=== PATIENT | male | born 1975 | race Caucasian/White ===

== ENCOUNTER 2024-12-05 10:03 | Emergency (ER) | payer OTHER, SELFPAY ==
[2024-12-05 10:10] VITALS: BP 177/100
--- NOTE | 2024-12-05 11:29 | ED.GENMED ---
History of Present Illness
General
Chief Complaint: Skin Surface Trauma
Source: patient
Exam Limitations: none
Time Seen by Provider: 12/05/24 10:47
Nursing documentation reviewed up to this point in time: agreed with
History of Present Illness
History of Present Illness:
Patient is a 49-year-old male who presents to the ER for evaluation of laceration. Patient was using a chainsaw and actually hit the top part of his left hand. He is [id number]. He denies any other injuries. He denies any numbness
tingling. No other injuries. Unsure of his last tetanus.
Past History
Past History
ED Past Medical History: GERD (Previcid prn), HTN (Metoprolol), Psychiatric (Sertriline 100 mg) and Other (Previous phlebitis from an IV and peripheral line in his right arm.)
ED Past Surgical History: Cholecystectomy
Social History
Tobacco: Non-smoker
Alcohol: Occasional
Personal:
Living: with family
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
Family History
Family History: Negative Diabetes, Hypertension or CAD
Review of Systems
Review of Systems
Allergies reviewed?: Yes
All Other Systems: ROS reviewed and negative except as documented in HPI and ROS
Constitutional: Reports no symptoms
Skin: Reports other (laceration to left hand )
Neurological: Reports no symptoms
Psychiatric: Reports no symptoms
Phy Exam
General Physical Exam
General Presentation: no apparent distress
General age: appears stated age
General Skin: warm and dry
General Habitus: normal
General Mental: alert
General Hydration: appears well hydrated
Neurological Exam
Neurological Exam: alert and oriented x3
Musculoskeletal Exam
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
Skin Exam
Skin Exam: normal color and warm/dry
Psychiatric Exam
Psychiatric Exam: normal mood/affect
Course
Orders/Labs/Results
Orders:
Orders
12/05/24 11:29
Tetanus/Diphth/Acelpertussis [Adacel] 0.5 ml IM .ONCE ONE
12/05/24 11:31
Vital Signs- Treatment ONCE
Frequency: Once
Vital Signs
Initial and Last Documented VS:
Initial Vital Signs
Temp Pulse Resp Pulse Ox
98.4 F 67 16 98
12/05/24 10:06 12/05/24 10:06 12/05/24 10:06 12/05/24 10:06
Last Documented Vital Signs
Temp Pulse Resp BP Pulse Ox
98.4 F 67 16 177/100 98
12/05/24 10:06 12/05/24 10:06 12/05/24 10:06 12/05/24 10:10 12/05/24 10:06
Procedures
Laceration Closure
Left Dorsal Hand:
Status of Wound: clean
Size of Wound in cm: 4
Description of Wound Edges: sharp
Preparation: cleaned with saline
Anesthesia: 1% Lidocaine
Revision/Debridement: routine- no revision
Wound exploration: no tendon involvement
Type of Closure: single layer closure and interrupted sutures
Skin Closure Material: 5-0 nylon
Number of sutures: 7
MDM/Problems Addressed
Differential Diagnosis Includes:
Not limited laceration
MDM/Problems Addressed:
Some laceration to dorsal left hand repaired as documented. Tetanus updated. Normal neurovascular exam wound care reviewed.
*Critical Care Note
Total Time (30-74mins, 75-104mins- exclusive of procedures): Not Applicable
ED Attending Note
-
Portions of this chart may have been created with voice recognition software.� Occasional wrong word or��sound alike� substitutions may have occurred due to the inherent limitations of voice recognition software.
Discharge Plan
Departure
Patient Disposition: Home (Routine Discharge)
Date of Disposition: 12/05/24
Time of Disposition: 11:30
Patient with high blood pressure during this ER visit?: Yes
Condition: Fair
Covid-19: Not Applicable
Discharge Problem:
Hand laceration
Instructions: Laceration Repair With Stitches (DC), BLOOD PRESSURE
Prescriptions:
No Action
metoprolol tartrate 100 MG tablet
100 mg PO DAILY
sertraline 100 MG tablet
100 mg PO DAILY
lansoprazole [Prevacid] 30 MG capsule,delayed release(DR/EC)
30 mg PO PRN PRN (Reason: reflux)
Activity Restrictions/Additional Instructions:
As discussed keep clean and dry for the next 24 hours after 24 hours wash twice a day with soap and water pat dry and apply small layer of antibiotic to the area. See family doctor as needed in 2 days for wound check and sutures are to be moved in
about 10 days. Return if any signs of infection of increased pain swelling redness drainage fever chills.
Interventions
Interventions:
*Risk Screen - Suicide Last Done: 12/05/24 10:06
*Neglect/Abuse Screening Last Done: 12/05/24 10:06
Discharge Date and Time
Print Language: SENEGALESE
[2024-12-05 11:30] VITALS: BP 142/69
[2024-12-05] MEDS: ADACEL 0.5 ML IM (11:39)
== END 2024-12-05 11:47 | disposition home or self-care (01) ==
LOC: EMR 10:03
PROVIDERS: EMERGENCY PHYSICIAN Emergency Medicine; FAMILY PHYSICIAN Family Medicine
DX: S61.412A Laceration without foreign body of left hand, initial encounter (principal); W29.3XXA Contact with powered garden and outdoor hand tools and machinery, initial encounter; Z23 Encounter for immunization; K21.9 Gastro-esophageal reflux disease without esophagitis; I10 Essential (primary) hypertension; Z90.49 Acquired absence of other specified parts of digestive tract
CPT/HCPCS: 99282; 12002; 90471; 90715